=== PATIENT | male | born 1965 | race African-American/Black ===

== ENCOUNTER → 2016-12-23 | Outpatient (CLI) | payer OTHER ==
[~2016-12-23] MED LIST: 1-ME1LIQ PO; AMLO10TA2 PO; ASPI325T PO; AXIR30SO TOPICAL; BACT800T5 PO; BUME2TAB PO; CALC1TAB87 PO; COMMODE 3-IN-11 MIS; CPMMACHINE; DEXA0.75 PO; DICL75TA; DICL75TA PO; ENAL20TA PO; ENAL20TA81 PO; ENOX40P SQ; LABE300T PO; LEVO100T5 PO; NORC5TAB PO; POTA-243 PO; POTA10TA2 PO; POTA10TA8 PO; PSEU1LIQ2 OR; RISE1TAB13 PO; SIMV20TA PO; TEST200I12; VALI10TA PO; WALKER WHEELS/F1 MIS; ZETI10TA5 PO; [UNRECOGNIZED DRUG - CODE] IM
[2016-12-23 10:29] LABS: AUTOMATED NEUTROPHIL # 4.7 TH/MM3 (1.8-7.7); BASOPHIL # 0.1 TH/MM3 (0-0.2); BASOPHIL % 0.7 % (0.0-2.0); EOSINOPHIL # 0.3 TH/MM3 (0-0.4); EOSINOPHIL % 4.3 % (0.0-4.0); HEMATOCRIT 43.4 % (39.0-51.0); HEMO FLAGS DIFF FINAL; LYMPH % 20.7 % (9.0-44.0); LYMPHOCYTE # 1.5 TH/MM3 (1.0-4.8); MEAN CELL VOLUME 77.7 FL (80.0-100.0); MEAN CORPUSCULAR HEMOGLOBIN 25.3 PG (27.0-34.0); MEAN CORPUSCULAR HGB CONC 32.6 % (32.0-36.0); MONO % 8.3 % (0.0-8.0); PLATELET COUNT 307 TH/MM3 (150-450); RED BLOOD COUNT 5.59 MIL/MM3 (4.50-5.90); RED CELL DISTRIBUTION WIDTH 15.3 % (11.6-17.2); WHITE BLOOD COUNT 7.1 TH/MM3 (4.0-11.0)
[2016-12-23 10:37] LABS: PROTHROMBIN TIME - PATIENT 11.4 SEC (9.8-11.6)
[2016-12-23 10:43] LABS: BLOOD, URINE NEG (NEG); COMMENT (UR) CULT NOT INDICATED; CULTURE IF INDICATED CULT NOT INDICATED; GLUCOSE,URINE NEG (NEG); HYALINE CAST, URINE 5 /lpf (RARE); KETONE, URINE NEG (NEG); MUCUS URINE FEW /lpf (OCC); NITRITE,URINE NEG (NEG); URINE COLOR LIGHT-YELLOW (YELLW/STRAW)
[2016-12-23 10:47] LABS: WESTERGREN SEDIMENTATION RATE 1 mm/hr (0-20)
[2016-12-23 10:53] LABS: ALKALINE PHOSPHATASE 58 U/L (45-117); ALT (GPT) 37 U/L (12-78); ANION GAP 7 MEQ/L (5-15); AST (GOT) 31 U/L (15-37); BICARBONATE 30.9 MEQ/L (21.0-32.0); BLOOD UREA NITROGEN 12 MG/DL (7-18); CHLORIDE 103 MEQ/L (98-107); GLOMERULAR FILTRATION RATE 65 ML/MIN (>89); GLUCOSE,FASTING 98 MG/DL (74-99); POTASSIUM 3.3 MEQ/L (3.5-5.1); SODIUM (NA) 141 MEQ/L (136-145); TOTAL BILIRUBIN ADULT 0.5 MG/DL (0.2-1.0)
--- NOTE | 2016-12-23 13:09 | RADRPT ---
EXAM DATE/TIME: 12/23/2016 12:21 [facility] COMPARISON: No previous studies available for comparison. INDICATIONS : Evaluate for Communicable disease, Pneumonia, Pnuemothorax. Preop MEDICAL HISTORY : None. SURGICAL HISTORY : None. ENCOUNTER: Initial ACUITY: 1 day PAIN SCORE: 0/10 LOCATION: Bilateral chest FINDINGS: PA and lateral views of the chest demonstrate the lungs to be symmetrically aerated without evidence of mass, infiltrate or effusion. The cardiomediastinal contours are unremarkable. Osseous structure s are intact. CONCLUSION: No acute disease. Ritesh Haley MD FACR on December 23, 2016 at 13:07 Board Certified Radiologist. This report was verified electronically.
--- NOTE | 2016-12-25 11:53 | EKG ---
Date Performed: 12/23/2016 Time Performed: 12:06:33 PTAGE: 51 years EKG: SINUS BRADYCARDIA NONSPECIFIC T-WAVE ABNORMALITY BORDERLINE ECG PREVIOUS TRACING : 01/27/2014 07.44 DOCTOR: Randal Fu Interpretating Date/Time 12/25/2016 11:51:23
== END ==
LOC: CPRE 09:36
PROVIDERS: ATTEND Orthopaedic Surgery
DX: Z01.810 Encounter for preprocedural cardiovascular examination (principal); Z01.811 Encounter for preprocedural respiratory examination; Z01.812 Encounter for preprocedural laboratory examination; Z96.60 Presence of unspecified orthopedic joint implant; M25.50 Pain in unspecified joint; M17.11 Unilateral primary osteoarthritis, right knee; M79.609 Pain in unspecified limb
CPT/HCPCS: 36415; 71020; 80053; 81001; 85025; 85610; 85652; 85730; 93005

== ENCOUNTER 2017-01-08 05:32 | Day surgery (SDC) | payer OTHER ==
[~2017-01-08] VITALS: Ht 170.2 cm; Wt 148.9 kg
[~2017-01-08 05:32] MED LIST changes: -1-ME1LIQ PO; -ASPI325T PO; -BACT800T5 PO; -COMMODE 3-IN-11 MIS; -CPMMACHINE; -DICL75TA; -ENAL20TA81 PO; -ENOX40P SQ; -LEVO100T5 PO; -NORC5TAB PO; -POTA-243 PO; -POTA10TA8 PO; -PSEU1LIQ2 OR; -RISE1TAB13 PO; -SIMV20TA PO; -TEST200I12; -VALI10TA PO; -WALKER WHEELS/F1 MIS; -[UNRECOGNIZED DRUG - CODE] IM
[2017-01-08] MEDS ORDERED: SODIUM CHLORID 0.9% 500 ML IV SCH (06:30)
[2017-01-08] MEDS ORDERED: INSULIN HUMAN REGULAR 1,000 UNITS/10 ML VIAL SQ PRN (06:30)
[2017-01-08] MEDS ORDERED: LACTATED RINGER'S 1000 ML IV SCH (06:30)
[2017-01-08] MEDS ORDERED: METOPROLOL TARTRATE 25 MG TAB PO PRN (06:30)
[2017-01-08] MEDS ORDERED: VANCOMYCIN 1000 MG/NS 250 ML (for <70 kg) IV SCH ×2 (06:45)
[2017-01-08] MEDS ORDERED: ceFAZolin 2 GM PREMIX 50 ML IV SCH (06:45)
[2017-01-08] MEDS ORDERED: POVIDONE IODINE 7.5% SCRUB 118 ML BOTTLE TOP SCH (06:45)
[2017-01-08] MEDS ORDERED: DEXAMETHASONE SOD PHOS 20 MG/5 ML VIAL IV PUSH SCH (06:45)
--- NOTE | 2017-01-08 06:52 | HHI.FF ---
Face to Face Verification Diagnosis: (1) Primary localized osteoarthrosis, lower leg (2) Status post total knee replacement, left Physical Therapy Gait training, Transfer training, bed to chair Knee: Total knee Left LE Weight Bearing: WB as tolerated Left LE Range of Motion: Active ROM Nursing Nursing: Krish teaching, Dressing changes Dressing Changes: Daily dressing change I have seen patient Scott Gómez on 01/08/17. My clinical findings support the need for the requested home health care services because: Limited ability to care for self High risk of falls I certify that my clinical findings support that this patient is homebound because: Post-op weakness Unsteady gait/balance Mumtaz Wilson Jan 08, 2017 06:52
--- NOTE | 2017-01-08 06:52 | HHI.DCPOC ---
Discharge Care Plan Diagnosis: (1) Primary localized osteoarthrosis, lower leg (2) Status post total knee replacement, left Your Health Problems Are: Difficulty with ADL Goals to Promote Your Health * To prevent worsening of your condition and complications * To maintain your health at the optimal level Directions to Meet Your Goals Take your medications as prescribed Follow your dietary instruction Follow activity as directed Keep your appointments as scheduled Take your immunizations and boosters as scheduled If your symptoms worsen call your PCP, if no PCP go to Urgent Care Center or Emergency Room Smoking is Dangerous to Your Health. Avoid second hand smoke Call the 24-hour hour crisis hotline for domestic abuse at Mumtaz Wilson Jan 08, 2017 06:52
[2017-01-08] MEDS ORDERED: WALKER WHEELS/F1 MIS (06:54)
[2017-01-08] MEDS ORDERED: CPMMACHINE (06:54)
[2017-01-08] MEDS ORDERED: COMMODE 3-IN-11 MIS (06:54)
[2017-01-08 07:08] VITALS: BP 159/75; PULSE 75; RESP 18; O2SAT 96
[2017-01-08] MEDS ORDERED: TRANEXAMIC ACID IV SCH (08:30)
[2017-01-08] MEDS ORDERED: SODIUM CHLORIDE 0.9% IV SCH (08:30)
[2017-01-08] MEDS ORDERED: ROPIVACAINE PERI-ARTICULAR INJECTION. PERIART SCH ×5 (08:30)
[2017-01-08] MEDS ORDERED: BACT800T5 PO (09:44)
== END 2017-01-08 08:43 | disposition home or self-care (01) ==
LOC: HSDI 05:32 → HSDC 05:32 → HSDI 05:32 → UNDOADMIN 05:32 → EDSTATUS 08:30 → HSDC 08:43 → UNDODISIN 08:43
PROVIDERS: ATTEND Orthopaedic Surgery
DX: M17.11 Unilateral primary osteoarthritis, right knee (principal); Z53.09 Procedure and treatment not carried out because of other contraindication
CPT/HCPCS: 86850; 86900; 86901; G0463; J0690; J1100; J3370; J7050; J7120; 99211

== ENCOUNTER 2017-01-08 09:07 | Emergency (ER) | payer OTHER ==
[~2017-01-08] VITALS: Ht 170.2 cm; Wt 150.0 kg
[~2017-01-08 09:07] MED LIST changes: +COMMODE 3-IN-11 MIS; +CPMMACHINE; +WALKER WHEELS/F1 MIS
[2017-01-08 09:22] VITALS: BP 114/56; PULSE 71; RESP 14; TEMP 98.4; O2SAT 96
[2017-01-08] MEDS ORDERED: BACT800T5 PO (09:44)
--- NOTE | 2017-01-08 09:44 | PD ---
HPI Chief Complaint: Skin Problem Time Seen by Provider: 09:31 Travel History International Travel<30 days: No Contact w/Intl Traveler<30days: No Traveled to known affect area: No History of Present Illness HPI Social history 1-year-old male presents to the emergency department from Friday surgery rescheduled the knee replacement. He has a spontaneously drinking abscess on his back. He gets them from time to time. His usually tends to let home with warm compresses. This all started draining today. Is a history of hypertension hyperlipidemia and prediabetes. No other complaints. History Past Medical History Narrative Medical Hypertension Hyperlipidemia Tetanus Vaccination: < 5 Years Social History Alcohol Use: No Tobacco Use: No Allergies-Medications (Allergen,Severity, Reaction): Coded Allergies: Sulfites & Bisulfites (Verified Allergy, Mild, "BREAKOUT" AND EZCEMA, 01/08) Wheat (Verified Allergy, Mild, "BREAK OUT" AND EZCEMA, 01/08/17) Morphine (Verified Adverse Reaction, Severe, HALLUCINATIONS, 01/08/17) Reported Meds & Prescriptions Reported Meds & Active Scripts Active Walker with Front Wheels (Device) 1 Mis Mis 1 Ea .ROUTE DIRECTED CPM-Continuous Passive Motion Machine 1 Ea Device 1 Ea .ROUTE DIRECTED Commode 3-in-1 (Device) 1 Mis Mis 1 Ea .ROUTE DIRECTED Reported Zetia (Ezetimibe) 10 Mg Tab 10 Mg PO DAILY Calcium 600 with Vitamin D (Calcium Carbonate-Cholecalciferol) 600-400 mg-Unit Tab 1 Tab PO DAILY Dexamethasone 0.75 Mg Tab 0.75 Mg PO DAILY PRN Amlodipine (Amlodipine Besylate) 10 Mg Tab 10 Mg PO DAILY Labetalol (Labetalol HCl) 300 Mg Tab 300 Mg PO BID Bumetanide 2 Mg Tab 2 Mg PO DAILY Enalapril (Enalapril Maleate) 20 Mg Tab 20 Mg PO DAILY Potassium Chloride ER (Potassium Chloride) 10 Meq Tab 10 Meq PO BID Axiron Topical (Testosterone) 30 Mg/Act Ellen 1 Applic TOPICAL DAILY Review of Systems Except as stated in HPI: all other systems reviewed are Neg Physical Exam Narrative GENERAL: Well-appearing 51-year-old man, no acute distress. SKIN: Warm and dry. On his back there is a 4 x 4 centimeters area of induration. There is a pustule in the middle of this. Spontaneously draining purulent drainage. It is tender. Warm. Not discernibly erythematous patient has dark skin tone. Data Data Last Documented VS Vital Signs Date Time Temp Pulse Resp B/P Pulse Ox O2 Delivery O2 Flow Rate FiO2 01/08/17 09:22 98.4 71 14 114/56 96 Room Air [facility] Medical Decision Making Medical Screen Exam Complete: Yes Emergency Medical Condition: Yes Differential Diagnosis Abscess, cellulitis, pustule, sebaceous cyst Narrative Course Medical decision making 51-year-old male with a draining abscess on his back. Wound cultures obtained. Drainage was expressed. His is accustomed attending to these. She uses warm compresses of Revegyel expresses all the purulent drainage. Lower continue local wound care, Bactrim. Diagnosis Primary Impression: Abscess of back Additional Instructions: Take Bactrim as prescribed. Continue warm compresses 3 times daily as discussed. Return to the emergency department for any worsening pain redness swelling or fevers. Follow up with her primary doctor in 2-4 days. Med/Other Pt SpecificInfo: Prescription(s) given, No Change to Meds Scripts Sulfamethoxazole-Trimethoprim (Bactrim DS)800-160 Mg Tab1 Tab PO BID #14 TAB Ref 0 Prov:Randal Gong MD 01/08/17 Disposition: 01 DISCHARGE HOME Condition: Stable Randal Gong MD Jan 08, 2017 09:44
== END 2017-01-08 10:13 | disposition home or self-care (01) ==
LOC: NEPB 09:07
DX: L02.212 Cutaneous abscess of back [any part, except buttock and flank] (principal); I10 Essential (primary) hypertension; E78.5 Hyperlipidemia, unspecified
CPT/HCPCS: 86403; 87070; 87186; 87205; 99282

== ENCOUNTER 2017-01-27 15:23 | Inpatient (IN) | payer OTHER ==
[~2017-01-27] VITALS: Ht 182.9 cm; Wt 147.2 kg
[~2017-01-27 15:23] MED LIST changes: +BACT800T5 PO; -DICL75TA PO
[2017-01-29] MEDS ORDERED: POTA10TA8 PO (09:05)
[2017-01-29] MEDS ORDERED: DICL75TA (09:05)
[2017-01-29] MEDS ORDERED: SIMV20TA PO (09:05)
[2017-01-29] MEDS ORDERED: LEVO100T5 PO (09:05)
[2017-01-29] MEDS ORDERED: TEST200I12 (09:05)
[2017-02-05] MEDS ORDERED: NEOSTIGMINE 3 MG/3 ML SYR IV ONE (10:25)
[2017-02-05] MEDS ORDERED: ePHEDrine/NS 25 MG/5 ML SYR IV ONE (10:25)
[2017-02-05] MEDS ORDERED: PROPOFOL 200 MG/20 ML AMP IV ONE (10:25)
[2017-02-05] MEDS ORDERED: LACTATED RINGER'S 1000 ML INJ 1,000 ML IV ONE (10:26)
[2017-02-05] MEDS ORDERED: ONDANSETRON HCL 4 MG/2 ML VIAL IV PUSH ONE (10:26)
[2017-02-05] MEDS ORDERED: PHENYLEPH/NS 1000 MCG/10 ML SYR IV ONE (10:26)
[2017-02-05] MEDS ORDERED: POVIDONE IODINE 7.5% SCRUB 118 ML BOTTLE TOPICAL SCH (11:15)
[2017-02-05] MEDS ORDERED: DEXAMETHASONE SOD PHOS 20 MG/5 ML VIAL IV ONE (11:15)
[2017-02-05] MEDS ORDERED: SODIUM CHLORIDE 0.9% IV SCH ×2 (11:15→20:00)
[2017-02-05] MEDS ORDERED: VANCOMYCIN 1000 MG/NS 250 ML (for <70 kg) IV SCH ×2 (11:15)
[2017-02-05] MEDS ORDERED: INSULIN HUMAN REGULAR 1,000 UNITS/10 ML VIAL SQ PRN (11:15)
[2017-02-05] MEDS ORDERED: METOPROLOL TARTRATE 25 MG TAB PO PRN (11:15)
[2017-02-05] MEDS ORDERED: ROPIVACAINE PERI-ARTICULAR INJECTION. P-ARTICULR SCH ×5 (11:15)
[2017-02-05] MEDS ORDERED: POVIDONE IODINE 5% (ANTISEPSIS KIT) 4 APPLICATIONS EACH NARE PRN (11:15)
[2017-02-05] MEDS ORDERED: ceFAZolin 2 GM PREMIX 50 ML IV SCH (11:15)
[2017-02-05] MEDS ORDERED: LACTATED RINGER'S 1000 ML IV PRN (11:15)
[2017-02-05] MEDS ORDERED: SODIUM CHLORID 0.9% 500 ML IV PRN (11:15)
[2017-02-05] MEDS ORDERED: CHLORHEXIDINE GLUCONATE 2 % 1 PACK (2 CLOTHS) TOPICAL PRN (11:15)
[2017-02-05] MEDS ORDERED: TRANEXAMIC ACID IV SCH ×2 (11:15→20:00)
[2017-02-05] MEDS ORDERED: RISE1TAB13 PO (11:29)
[2017-02-05 11:37] VITALS: BP 150/81; PULSE 61; RESP 18; TEMP 98.9; O2SAT 97
[2017-02-05] MEDS ORDERED: BUPIVACAINE LIPOSOME PF 1.3% 20 ML VIAL ONE (12:45)
[2017-02-05] MEDS ORDERED: FAMOTIDINE 20 MG/2 ML VIAL ONE (12:48)
[2017-02-05] MEDS ORDERED: ACETAMINOPHEN 1000 MG/100 ML VIAL IV ONE (12:48)
[2017-02-05] MEDS ORDERED: GENTAMICIN SULFATE 80 MG/2 ML VIAL ONE (13:03)
[2017-02-05] MEDS ORDERED: MIDAZOLAM HCL 2 MG/2 ML VIAL ONE (13:23)
[2017-02-05] MEDS ORDERED: fentaNYL CITRATE 250 MCG/5 ML AMP ONE (13:23)
--- NOTE | 2017-02-05 15:42 | PD.OP ---
cc: Param Brenner MD Operative Report Date of Surgery: Feb 05, 2017 Preoperative Diagnosis: Left knee severe osteoarthritis Postoperative Diagnosis: Same Procedure: Left total knee arthroplasty Anesthesia: Adductor canal block and general Surgeon: Param Brenner Special Events Director(s): AVINASH Troncoso The surgical procedure was assisted by my Advanced Registered Nurse Practitioner. My CERTIFICATION ENGINEER presence was necessary throughout this case for the manipulation and positioning of the surgical extremity. My CERTIFICATION ENGINEER was assisting me throughout the duration of this procedure. The skill set of an Advance Registered Nurse Practitioner was medically necessary to complete this procedure. During the surgical case, the surgical instrument technician was working at the back table and the Advance Registered Nurse Practitioner was directly assisting me. Operation and Findings: IMPLANTS: DePuy Attune: Patella: size 35. Femur, posterior stabilized size 6. Tibia, rotating platform size 5. Tibial insert, rotating platform, posterior stabilized size 5 mm thickness. ESTIMATED BLOOD LOSS: 150 cc TOURNIQUET TIME: 47 minutes at 250 mmHg pressure. JUSTIFICATION FOR PROCEDURE: The patient has end-stage osteoarthritis to the knee. There is an attached conservative measures pathway form in the chart that describes the nonoperative measures that were undertaken prior to consideration of surgical management. The patient understood the risks and benefits of surgical management. See my office notes for further details PROCEDURE: The patient was brought back to the operative theatre. Adequate anesthesia was obtained. The patient received intravenous vancomycin and Ancef. The lower extremity was prepped and draped in the usual sterile fashion.The leg was exsanguinated, the tourniquet was raised. A standard anterior incision was performed followed by medial parapatellar arthrotomy was performed. End-stage arthritis was identified. Osteotomy of the patella was performed. We drilled holes for the patella. We trialed the patella component. We placed an intramedullary guide into the distal femur. We ultimately resected 13 mm off of the distal femur in 5 degrees of valgus. The remnants of the ACL and PCL were resected. Osteotomy of the proximal tibia was performed, resecting 5 mm off of the medial side. This was done with 3 degrees of posterior slope using an extramedullary guide. The distal end of the guide was placed in the mid aspect of the ankle. The femur was sized, and four chamfer cuts were completed in 3 of external rotation. We then cut the central box in the distal femur to replace the PCL. We resected the remnants of the menisci and removed osteophytes off of the femur and tibia. We then trialed the knee. We punched the tibia for the keel, and then used standard technique to cement in components. Excess cement was removed. We identified that there were still some tightness in the lateral aspect of the knee. This tightness was mostly from contracture of the popliteus tendon. This tendon was recessed with the knee in flexion as this was where most of the tightness occurred laterally. After the recession the knee balanced very nicely. The lateral collateral ligament and iliotibial band were preserved. We trialed the knee again and the final polyethylene thickness was chosen to provide extension to 0 degrees, and flexion of 140 degrees to gravity. The ligaments were appropriately balanced. Lateral release was not necessary to obtain excellent patellofemoral tracking. The tourniquet was released and adequate hemostasis was obtained. An intra- articular injection of a ropivacaine cocktail was injected. The posterior knee was inspected for excess cement, which was removed. The final polyethylene was put into position after thorough irrigation. We then closed deep fascia with a #2 Stratafix followed by skin with 2-0 Vicryl followed by marilee. Postop plan is to weight-bear as tolerated. DVT prophylaxis will be performed with SCDs, GRADY naylor, early mobilization, and Lovenox followed by aspirin. Param Brenner MD Feb 05, 2017 15:42
[2017-02-05] MEDS ORDERED: NALOXONE HCL 0.4 MG/ML AMP IV PRN (15:45)
[2017-02-05] MEDS ORDERED: ACETAMINOPHEN/HYDROcodone 325 MG/5 MG TAB PO PRN (15:45)
[2017-02-05] MEDS ORDERED: ONDANSETRON HCL 4 MG/2 ML VIAL IVP PRN (15:45)
[2017-02-05] MEDS ORDERED: HYDROmorphone HCL PF 1 MG/ML VIAL IV PRN (15:45)
[2017-02-05] MEDS ORDERED: ALUMINUM/MAGNESIUM/SIMETH 30 ML CUP PO PRN (15:45)
[2017-02-05] MEDS ORDERED: MAGNESIUM HYDROXIDE SUSP 30 ML CUP PO PRN (15:45)
[2017-02-05] MEDS ORDERED: BISACODYL 10 MG SUPP RECTAL PRN (15:45)
[2017-02-05] MEDS ORDERED: Post-op Orders (for Pharmacy) MISC XX ONE (15:45)
[2017-02-05] MEDS ORDERED: diphenhydrAMINE HCL 50 MG/ML VIAL IV PRN (15:45)
[2017-02-05] MEDS ORDERED: SODIUM CHLORIDE 0.9% FLUSH 5 ML FLUSH IVF PRN (15:45)
[2017-02-05] MEDS ORDERED: ZOLPIDEM TARTRATE 5 MG TAB PO PRN (15:45)
[2017-02-05] MEDS ORDERED: NORC5TAB PO (15:47)
[2017-02-05] MEDS ORDERED: ENOX40P SQ (15:47)
[2017-02-05] MEDS ORDERED: ASPI325T PO (15:47)
[2017-02-05] MEDS ORDERED: DO NOT ADM ANY ANTICOAGULANT DRUGS PRN (16:30)
[2017-02-05] MEDS ORDERED: *HYDROmorphone PF 1 MG VIAL PERIprocedural Use ONLY ONE ×4 (16:38→18:43)
[2017-02-05] MEDS: SODIUM CHLOR 0.9% 1000 ML INJ 1,000 ML IV SCH (17:10)
--- NOTE | 2017-02-05 17:15 | RADRPT ---
EXAM DATE/TIME: 02/05/2017 16:15 [facility] COMPARISON: No previous studies available for comparison. INDICATIONS : Status post lt knee total arthroplasty. MEDICAL HISTORY : None. SURGICAL HISTORY : None. ENCOUNTER: Subsequent ACUITY: 1 day PAIN SCORE: Non-responsive. LOCATION: Left Knee FINDINGS: Frontal and crosstable lateral views of the left knee are obtained status post total knee arthroplast y. The tibial and femoral components appear well seated. Skin marilee are noted anteriorly and soft t issue emphysema is present. CONCLUSION: Postoperative changes are noted status post total knee arthroplasty. William Aguiar MD on February 05, 2017 at 17:13 Board Certified Radiologist. This report was verified electronically.
--- NOTE | 2017-02-05 17:55 | HHI.DCPOC ---
Discharge Care Plan Diagnosis: (1) Primary localized osteoarthrosis, lower leg (2) Status post total knee replacement, left Your Health Problems Are: Difficulty with ADL Goals to Promote Your Health * To prevent worsening of your condition and complications * To maintain your health at the optimal level Directions to Meet Your Goals Take your medications as prescribed Follow your dietary instruction Follow activity as directed Keep your appointments as scheduled Take your immunizations and boosters as scheduled If your symptoms worsen call your PCP, if no PCP go to Urgent Care Center or Emergency Room Smoking is Dangerous to Your Health. Avoid second hand smoke Call the 24-hour hour crisis hotline for domestic abuse at Mumtaz Wilson Feb 05, 2017 17:55
--- NOTE | 2017-02-05 17:56 | HHI.FF ---
Face to Face Verification Diagnosis: (1) Primary localized osteoarthrosis, lower leg (2) Status post total knee replacement, left Physical Therapy Gait training, Transfer training, bed to chair Knee: Total knee Left LE Weight Bearing: WB as tolerated Left LE Range of Motion: Active ROM Nursing Nursing: Krish teaching, Dressing changes Dressing Changes: Daily dressing change I have seen patient Scott Gómez on 02/05/17. My clinical findings support the need for the requested home health care services because: Limited ability to care for self High risk of falls I certify that my clinical findings support that this patient is homebound because: Post-op weakness Unsteady gait/balance Mumtaz Wilson Feb 05, 2017 17:56
[2017-02-05] MEDS ORDERED: WALKER WHEELS/F1 MIS (17:57)
[2017-02-05] MEDS ORDERED: CPMMACHINE (17:57)
[2017-02-05] MEDS ORDERED: COMMODE 3-IN-11 MIS (17:57)
[2017-02-05] MEDS ORDERED: *ENALAPRILAT 1.25 MG/ML VIAL PERIprocedural Use ONLY ONE (18:25)
[2017-02-05] MEDS ORDERED: hydrALAZINE HCL 20 MG/ML VIAL ONE (19:02)
[2017-02-05 20:00] VITALS: BP 161/93; PULSE 83; RESP 16; TEMP 97; O2SAT 95
[2017-02-05] MEDS: SODIUM CHLORIDE 0.9% FLUSH 5 ML FLUSH IVF SCH (21:00)
[2017-02-05] MEDS: POTASSIUM CHLORIDE 10 MEQ CONTROLLED RELEASE TAB PO SCH (21:45)
[2017-02-05] MEDS: ACETAMINOPHEN/HYDROcodone 325 MG/5 MG TAB PO PRN (23:47)
[2017-02-06] MEDS: SODIUM CHLOR 0.9% 1000 ML INJ 1,000 ML IV SCH ×2 (00:15→11:42)
[2017-02-06] MEDS: ACETAMINOPHEN/HYDROcodone 325 MG/5 MG TAB PO PRN ×4 (03:32→16:20)
[2017-02-06 04:40] VITALS: BP 179/100; PULSE 66; RESP 22; TEMP 97.1; O2SAT 97
[2017-02-06 05:15] VITALS: BP 169/91; PULSE 72
[2017-02-06 05:42] LABS: HEMATOCRIT 37.9 % (39.0-51.0); MEAN CELL VOLUME 77.4 FL (80.0-100.0); MEAN CORPUSCULAR HEMOGLOBIN 25.6 PG (27.0-34.0); PLATELET COUNT 287 TH/MM3 (150-450); RED BLOOD COUNT 4.91 MIL/MM3 (4.50-5.90); RED CELL DISTRIBUTION WIDTH 15.9 % (11.6-17.2); REVIEW FLAG FINAL; WHITE BLOOD COUNT 13.2 TH/MM3 (4.0-11.0)
[2017-02-06] MEDS ORDERED: LEVOTHYROXINE SODIUM 100 MCG TAB PO SCH (06:00)
[2017-02-06 06:07] VITALS: O2SAT 95
[2017-02-06] MEDS ORDERED: DEXAMETHASONE SOD PHOS 20 MG/5 ML VIAL IV ONE (07:45)
[2017-02-06 07:52] VITALS: BP 195/83; PULSE 63; RESP 18; TEMP 96.4; O2SAT 96
[2017-02-06] MEDS: POTASSIUM CHLORIDE 10 MEQ CONTROLLED RELEASE TAB PO SCH (08:10)
[2017-02-06] MEDS: SODIUM CHLORIDE 0.9% FLUSH 5 ML FLUSH IVF SCH (08:10)
[2017-02-06] MEDS ORDERED: BUMETANIDE 1 MG TAB PO SCH (09:00)
[2017-02-06] MEDS ORDERED: EZETIMIBE 10 MG TAB PO SCH (09:00)
[2017-02-06] MEDS ORDERED: LABETALOL HCL 300 MG TAB PO SCH (09:00)
[2017-02-06] MEDS ORDERED: TESTOSTERONE TOPICAL SCH (09:00)
[2017-02-06] MEDS ORDERED: ENALAPRIL MALEATE 10 MG TAB PO SCH (09:00)
[2017-02-06 09:03] VITALS: O2SAT 97
[2017-02-06 12:15] VITALS: BP 147/74; PULSE 73; RESP 16; TEMP 97.7; O2SAT 95
--- NOTE | 2017-02-06 12:50 | PD.ORT.PN ---
Subjective Post Op Day #: 1 Subjective Remarks The patient is OOB in chair with little to no pain to the left knee. Patient requesting to go home today with home health. Objective Vitals Vital Signs Date Time Temp Pulse Resp B/P Pulse Ox O2 Delivery O2 Flow Rate FiO2 02/06/17 09:03 97 Nasal Cannula 1.50 02/06/17 07:52 96.4 63 18 195/83 96 02/06/17 06:07 95 Nasal Cannula 02/06/17 05:15 72 169/91 02/06/17 04:40 97.1 66 22 179/100 97 02/05/17 20:00 97.0 83 16 161/93 95 02/05/17 19:00 82 16 171/90 95 Nasal Cannula 2 02/05/17 18:30 78 16 170/83 94 Nasal Cannula 2 02/05/17 18:00 81 16 162/89 94 Nasal Cannula 2 02/05/17 17:30 98.2 76 16 165/88 95 Nasal Cannula 2 02/05/17 17:15 71 14 161/93 94 Nasal Cannula 2 02/05/17 17:00 74 14 167/86 95 Nasal Cannula 2 02/05/17 16:45 71 14 155/82 95 Nasal Cannula 2 02/05/17 16:30 82 15 130/82 94 Nasal Cannula 2 02/05/17 16:15 83 16 152/91 92 Room Air 02/05/17 16:10 97.6 93 15 140/71 92 Room Air I/O 02/05/17 02/05/17 02/05/17 02/06/17 02/06/17 02/06/17 07:00 15:00 23:00 07:00 15:00 23:00 Intake Total 2835 ml 1684 ml Output Total 1125 ml 1800 ml Balance 1710 ml -116 ml Intake Oral 900 ml 850 ml IV Total 535 ml 834 ml Other 1400 ml Output Urine Total 1025 ml 1800 ml Estimated Blood Loss 100 ml # Bowel Movements 0 0 Result Diagram: 02/06/17 0509 Imaging Last 24 hours Impressions Knee X-Ray 02/05/17 1542 Signed Impressions: Service Date/Time: Sunday, February 05, 2017 16:15 - CONCLUSION: Postoperative changes are noted status post total knee arthroplasty. William Aguiar MD Procedures Left TKA Objective Remarks The patient's dressing is changed with scant serosanguineous drainage. Incision is well approximated with surgical clips intact. No redness or s/s of infection. EHL/TA/G intact. 2+ pedal pulse. Mild swelling. + SILT. Calf is soft and nontender. Patient reports his most recent BP was 140s over 70s. Nurse to recheck. Assessment & Plan Ortho Post Op Day #: 1 Problem List: Assessment and Plan POD #1: Left TKA 1. WBAT LLE 2. Lovenox for DVT prophylaxis 3. Ice to the left knee PRN 4. Stable for discharge home with home health today. Mumtaz Wilson Feb 06, 2017 12:50
[2017-02-06] MEDS ORDERED: ENOXAPARIN SODIUM 40 MG/0.4 ML SYRINGE SQ SCH (15:00)
[2017-02-06] MEDS ORDERED: DOCUSATE SODIUM 100 MG CAP PO SCH (21:00)
[2017-02-06] MEDS ORDERED: MULTIVITAMINS/MINERALS THERAPEUTIC TAB PO SCH (21:00)
--- NOTE | 2017-02-09 23:11 | HHI.DS ---
Discharge Summary Admission Date Feb 05, 2017 at 10:41 Discharge Date: Feb 07, 2017 Admitting Diagnosis Primary localized OA of the left knee Diagnosis: (1) Primary localized osteoarthrosis, lower leg Diagnosis: Principal (2) Status post total knee replacement, left Diagnosis: Principal Procedures Left TKA Brief History This is a 51 year old male patient with severe OA of the left knee CBC/BMP: 02/06/17 0509 PE at Discharge The patient's dressing is changed with scant serosanguineous drainage. Incision is well approximated with surgical clips intact. No redness or s/s of infection. EHL/TA/G intact. 2+ pedal pulse. Mild swelling. + SILT. Calf is soft and nontender. Patient reports his most recent BP was 140s over 70s. Nurse to recheck. Hospital Course The patient was admitted to the hospital for severe OA of the left knee to have a left TKA. The patient's surgery went well without complication. The patient was placed on a regular diet and is WBAT on the left LE. The patient was discharged home with home health and will f/u with Dr. Brenner in 1-2 weeks. Pt Condition on Discharge: Stable Discharge Disposition: Disch w/ Home Health Serv Discharge Instructions Diet Instructions: As Tolerated, No Restrictions Activities You Can Perform: Weight Bearing as Gianni Activities to Avoid: Strenuous Activity Follow up Referrals: Orthopedics with Param Brenner MD SN[facility]/ with [facility] New Medications: Aspirin (Aspirin) 325 Mg Tab 325 MG PO DAILY Start Aspirin after Lovenox is completed. Prevent Blood Clot # 30 Ref 0 TAB Commode 3-in-1 (Commode 3-in-1) 1 Mis Mis 1 EA .ROUTE DIRECTED #1 Ref 0 EA CPM-Continuous Passive Motion Machine (CPM-Continuous Passive Motion Machine) 1 Ea Device 1 EA .ROUTE DIRECTED #1 Ref 0 EA Enoxaparin Inj (Lovenox Inj) 40 Mg/0.4 Ml Syr 40 MG SQ DAILY Start Aspirin after Lovenox is completed. Blood Clot Prevention # 10 Ref 0 SYRINGE Hydrocodone-Acetaminophen ([place]) 5-325 mg Tab 1-2 TAB PO Q4H PRN PAIN #60 Ref 0 TAB Walker with Front Wheels (Walker with Front Wheels) 1 Mis Mis 1 EA .ROUTE DIRECTED #1 Ref 0 EA Continued Medications: Amlodipine (Amlodipine) 10 Mg Tab 10 MG PO DAILY Blood Pressure Management #30 Ref 0 TAB Bumetanide (Bumetanide) 2 Mg Tab 2 MG PO DAILY Ref 0 TAB Calcium Carbonate-Cholecalciferol (Calcium 600 with Vitamin D) 600-400 mg-Unit Tab 1 TAB PO DAILY Calcium Supplement Ref 0 TAB Dexamethasone (Dexamethasone) 0.75 Mg Tab 0.75 MG PO DAILY PRN INFLAMATION Ref 0 TAB Enalapril (Enalapril) 20 Mg Tab 20 MG PO DAILY #30 Ref 0 TAB Ezetimibe (Zetia) 10 Mg Tab 10 MG PO DAILY #30 Ref 0 TAB Labetalol (Labetalol) 300 Mg Tab 300 MG PO DAILY Blood Pressure Management Ref 0 TAB Levothyroxine (Levothyroxine) 100 Mcg Tab 1 TAB PO DAILY #30 Potassium Chloride ER (Potassium Chloride ER) 10 Meq Tab 10 MEQ PO BID Electrolyte Replacement #60 Ref 0 TAB Risedronate (Risedronate) 150 Mg Tab 150 MG PO Q30D Manage Osteoporosis #1 Ref 0 TAB Testosterone Topical (Axiron Topical) 30 Mg/Act Ellen 1 APPLIC TOPICAL DAILY Hormone Replacement #90 Ref 0 ML Discontinued Medications: Diclofenac Sodium DR (Diclofenac Sodium DR) 75 Mg Tabdr 1 TAB DAILY #60 Mumtaz Wilson Feb 09, 2017 23:11
== END 2017-02-06 16:36 | disposition home health service (06) | DRG 470 ==
LOC: HSDI 02-05 10:41 → N06A 02-05 19:24
PROVIDERS: ADMIT Orthopaedic Surgery; ATTEND Orthopaedic Surgery
PROC: 3E0T3CZ (ICD-10-PCS; 2017-02-05)
PROC: 0SRD0J9 Replacement of Left Knee Joint with Synthetic Substitute, Cemented, Open Approach (ICD-10-PCS; principal; 2017-02-05 13:26)
DX: M17.12 Unilateral primary osteoarthritis, left knee (principal); Z68.41 Body mass index [BMI] 40.0-44.9, adult; I10 Essential (primary) hypertension; E03.9 Hypothyroidism, unspecified; E78.5 Hyperlipidemia, unspecified; E66.01 Morbid (severe) obesity due to excess calories; Z88.5 Allergy status to narcotic agent; Z88.8 Allergy status to other drugs, medicaments and biological substances
CPT/HCPCS: 73560; 85027; 86850; 86900; 86901; 94150; C1776; C9290; J0131; J0171; J0360; J0690; J0735; J1100; J1170; J1580; J1650; J1885; J2250; J2370; J2405; J2710; J2795; J3010; J7030; J7120; L1830